=== PATIENT | female | born 1970 | race Caucasian/White ===

== ENCOUNTER 2020-09-25 14:27 | Emergency (ER) | payer OTHER ==
[2020-09-25 15:48] LABS: #Eosinphils 0.3 thou/uL (0.0-0.7); #Lymphocytes 2.1 thou/uL (1.20-3.40); #Monocytes 0.4 thou/uL (0.11-0.59); #Neutrophils 4.8 thou/uL (1.40-6.50); %Basophils 0.2 % (0.0-1.0); %Eosinophils 3.7 % (0.0-10.0); %Lymphocytes 27.7 % (21.0-51.0); %Monocytes 5.3 % (0.0-10.0); %Neutrophils 63.2 % (42.0-75.0); Hemoglobin 13.9 g/dL (12.0-16.0); Mean Corpuscular HGB CONC 35.3 g/dL (32.0-36.0); Mean Corpuscular Hemoglobin 31.1 pg (27.0-31.0); Mean Platelet Volume 7.1 fL (7.4-10.4); Platelet Count 253 thou/uL (130-400); Red Blood Cell (RBC) Count 4.48 mill/uL (4.20-5.40); White Blood Cell (WBC) Count 7.6 thou/uL (4.8-10.8)
[2020-09-25 16:12] LABS: ALT (SGPT) 32 U/L (8-55); AST (SGOT) 21 U/L (5-34); Albumin 4.4 g/dL (3.5-5.0); Alkaline Phosphatase 105 U/L (40-110); Anion Gap 16 mmol/L (10-20); BUN (Urea Nitrogen) 12 mg/dL (9.8-20.1); Bilirubin, Total 0.4 mg/dL (0.2-1.2); Calc. Creatinine Clearance 0 mL/min (70-130); Calcium 9.4 mg/dL (7.8-10.44); Carbon Dioxide 21 mmol/L (22-29); Chloride 106 mmol/L (98-107); Globulin 2.8 g/dL (2.4-3.5); Glucose 171 mg/dL (70-105); Lipase 43 U/L (8-78); Potassium 3.7 mmol/L (3.5-5.1); Protein, Total 7.2 g/dL (6.0-8.3); Sodium 139 mmol/L (136-145)
[2020-09-25] MEDS ORDERED: Lidocaine Viscous Sol 2% 15 ml UD Cup ONE (16:42)
[2020-09-25] MEDS ORDERED: Mag-Al 1200 mg/1200 mg/30 ML UDCUP ONE (16:42)
[2020-09-25] MEDS ORDERED: Pantoprazole 40 MG VIAL ONE (16:42)
[2020-09-25] MEDS ORDERED: Aspirin Chewable 81 MG TAB ONE (16:42)
== END 2020-09-25 18:35 | disposition home or self-care (01) ==
LOC: ERS 14:27
DX: R07.2 Precordial pain (principal); R10.13 Epigastric pain; E11.9 Type 2 diabetes mellitus without complications; M19.90 Unspecified osteoarthritis, unspecified site; Z79.899 Other long term (current) drug therapy
CPT/HCPCS: 36415; 70450; 71045; 75809; 80053; 83690; 84484; 85025; 93005; 96365; 96366; C9113

== ENCOUNTER 2021-07-09 01:38 | Emergency (ER) | payer SELFPAY ==
[2021-07-09 02:31] LABS: ALT (SGPT) 39 U/L (8-55); AST (SGOT) 29 U/L (5-34); Albumin 4.9 g/dL (3.5-5.0); Alcohol 81 mg/dL (Less than 10); Alkaline Phosphatase 102 U/L (40-110); Anion Gap 16 mmol/L (10-20); BUN (Urea Nitrogen) 11 mg/dL (9.8-20.1); Bilirubin, Total 0.6 mg/dL (0.2-1.2); Calc. Creatinine Clearance 0 mL/min (70-130); Calcium 9.7 mg/dL (7.8-10.44); Carbon Dioxide 23 mmol/L (22-29); Chloride 108 mmol/L (98-107); Globulin 3.5 g/dL (2.4-3.5); Glucose 138 mg/dL (70-105); Potassium 3.9 mmol/L (3.5-5.1); Protein, Total 8.4 g/dL (6.0-8.3); Sodium 143 mmol/L (136-145)
[2021-07-09 02:32] LABS: Acetaminophen Less than 6.0 mcg/mL (10.0-30.0); Alcohol 80 mg/dL (Less than 10); Salicylate Less than 8.0 mg/dL (15.0-30.0)
[2021-07-09 02:48] LABS: #Eosinphils 0.3 thou/uL (0.0-0.7); #Lymphocytes 2.3 thou/uL (1.20-3.40); #Monocytes 0.5 thou/uL (0.11-0.59); #Neutrophils 4.9 thou/uL (1.40-6.50); %Basophils 0.3 % (0.0-1.0); %Lymphocytes 28.4 % (21.0-51.0); %Monocytes 6.5 % (0.0-10.0); %Neutrophils 60.8 % (42.0-75.0); Hemoglobin 15.6 g/dL (12.0-16.0); Mean Corpuscular HGB CONC 34.8 g/dL (32.0-36.0); Mean Corpuscular Hemoglobin 31.4 pg (27.0-31.0); Mean Corpuscular Volume 90.3 fL (78.0-98.0); Mean Platelet Volume 7.2 fL (7.4-10.4); Platelet Count 224 thou/uL (130-400); RBC Distribution Width 12.6 % (11.5-14.5); Red Blood Cell (RBC) Count 4.97 mill/uL (4.20-5.40)
[2021-07-09 03:10] LABS: Amphetamine Not Detected (NotDetected); Barbiturates Screen Not Detected (NotDetected); Benzodiazepine Screen Not Detected (NotDetected); Cocaine Metabolite Screen Not Detected (NotDetected); Methadone Not Detected (NotDetected); Methamphetamine Not Detected (NotDetected); Opiate Screen Not Detected (NotDetected); Oxycodone Screen Not Detected (NotDetected); Phencyclidine (PCP) Not Detected (NotDetected); THC/Cannabinoid Screen Not Detected (NotDetected); Tricyclic Screen Not Detected (NotDetected)
[2021-07-09 08:21] LABS: SARS-CoV-2 NAA Rapid Test Not Detected (NotDetected)
== END 2021-07-09 15:05 | disposition home or self-care (01) ==
LOC: ERS 01:38
DX: T43.592A Poisoning by other antipsychotics and neuroleptics, intentional self-harm, initial encounter (principal); F32.9 Major depressive disorder, single episode, unspecified; M19.90 Unspecified osteoarthritis, unspecified site; F17.290 Nicotine dependence, other tobacco product, uncomplicated; Z20.822 Contact with and (suspected) exposure to COVID-19; Z79.899 Other long term (current) drug therapy
CPT/HCPCS: 36415; 80053; 80306; 80307; 84443; 85025; 93005; U0002